=== PATIENT | female | born 1965 | race Caucasian/White ===

== ENCOUNTER 2017-06-11 08:28 | Day surgery (SDC) | payer MEDICARE, MEDICAID ==
[~2017-06-11 08:28] MED LIST: ACETAMINOPHEN 1,000 MG/100 ML BTL IV ONE; CLINDAMYCIN 600MG/50ML PREMIX 600 MG/50 ML BAG IVPB ONE
[2017-06-11] MEDS ORDERED: MORPHINE SULFATE 5 MG/ML PFS IVP ONE (08:29)
[2017-06-11] MEDS ORDERED: METHYLPREDNISOLONE 40MG/VIAL IM ONE (08:29)
[2017-06-11] MEDS ORDERED: MIDAZOLAM HCL 2MG/2ML VIAL IV ONE (08:29)
[2017-06-11] MEDS ORDERED: KETOROLAC 30 MG/ML VIAL IVP ONE (08:29)
[2017-06-11] MEDS ORDERED: ONDANSETRON HCL IV 4 MG/2 ML VIAL IVP ONE (08:29)
[2017-06-11] MEDS ORDERED: SEVOFLURANE 250 ML INH ONE (08:29)
[2017-06-11] MEDS ORDERED: HYDROCODONE/APAP 7.5/325MG TABLET PO ONE (08:29)
[2017-06-11] MEDS ORDERED: BUPIVACAINE 0.25% MPF 30ML VIAL IVP ONE (08:29)
[2017-06-11] MEDS ORDERED: PROPOFOL 10 MG/ML VIAL IV ONE (08:29)
[2017-06-11] MEDS ORDERED: LIDOCAINE 2% MDV (20MG/ML) 20ML VIAL IV ONE (08:29)
--- NOTE | 2017-06-11 15:29 | Operative Note ---
DATE: 06/11/2017 PREOPERATIVE DIAGNOSIS: INTERNAL DERANGEMENT OF THE RIGHT KNEE. POSTOPERATIVE DIAGNOSES: 1. MODERATE SYNOVITIS 2. GRADE 3 CHONDROMALACIA PATELLA. 3. GRADE 3 CHONDROMALACIA MEDIAL FEMORAL CONDYLE. 4. COMPLEX DEGENERATIVE SPLIT TEAR INVOLVING THE POSTERIOR HORN OF THE MEDIAL MENISCUS. 5. 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 PROCEDURE: 1. RIGHT KNEE ARTHROSCOPY WITH PARTIAL MEDIAL AND LATERAL MENISCECTOMY. 2. RIGHT KNEE ARTHROSCOPY WITH CHONDROPLASTY OF THE MEDIAL FEMORAL CONDYLE AND PATELLA. 3. RIGHT KNEE ARTHROSCOPY WITH LIMITED SYNOVECTOMY. STAFF SURGEON: KENIA GONZALEZ M.D. ANESTHESIA: GENERAL. PREPARATION: CHLORAPREP. INDIVIDUAL CONSIDERATIONS: NONE. PROCEDURE: The patient was taken to the Operating Room and placed supine on the operating table. She had a successful induction of a general anesthetic. Her right lower extremity was prepped and draped in the usual fashion. The patient had superolateral inflow cannula placed. The skin was infiltrated with 0.5% Marcaine with Epinephrine prior. The knee was then inflated with normal saline. An inferior medial and inferior lateral portal were made in a similar fashion. The arthroscope was introduced through the inferior lateral portal up to the pouch. The patellofemoral joint showed grade 3 change of the patella, which was smooth off with a shaver. The notch looked good. There was quite a bit of synovitis in the pouch but not in the gutters. The pouch synovitis was debrided with a shaver. Medially, grade 3 change of the medial femoral condyle throughout, which was smoothed with a shaver and she had a complex degenerative split tear involving the posterior horn of the medial meniscus, which was debrided out to stable rim with basket forceps and a shaver. In the notch, the cruciates were normal. Laterally, she had a discoid meniscus and normal articular cartilage. On the femoral condyle, there was a tear, a small flap, extending a little bit radially internally involving the anterior medial portion, which was debrided back to stable area with basket forceps and a shaver. I left the remaining stable portions of the discoid meniscus intact. After irrigation, the portals were closed with declan and 20 mL of 0.25% plain Marcaine along with 5 mg of Morphine and 40 mg DepoMedrol were injected into the knee and a sterile Bulkee compressive dressing was applied. The patient tolerated the procedures well. Needle and sponge counts were correct. Estimated blood loss was minimal and she was taken back to Recovery in good condition. There were no complications. cc: Dr. Kwame Block JOB NUMBER: [id number] MTDD
== END 2017-06-11 11:30 | disposition home or self-care (01) ==
LOC: SUR 08:28
PROVIDERS: ATTEND Orthopaedic Surgery
DX: M23.306 Other meniscus derangements, unspecified meniscus, right knee (principal); S83.231A Complex tear of medial meniscus, current injury, right knee, initial encounter; M22.41 Chondromalacia patellae, right knee; M94.261 Chondromalacia, right knee; M65.88 Other synovitis and tenosynovitis, other site
CPT/HCPCS: 29880; 01400; J1885; J2405; J2270; J1030